=== PATIENT | female | born 1985 | race Caucasian/White ===

== ENCOUNTER 2019-03-28 12:52 | Emergency (ER) | payer SELFPAY ==
[~2019-03-28] VITALS: Ht 154.9 cm; Wt 75.9 kg
[2019-03-28] MEDS ORDERED: KETOROLAC TROMETHAMINE 60 MG/2 ML VIAL IM ONE (13:30)
[2019-03-28] MEDS ORDERED: FAMOTIDINE 20 MG TABLET PO ONE (13:30)
[2019-03-28 16:05] VITALS: BP 112/68
== END 2019-03-28 16:15 | disposition home or self-care (01) ==
LOC: EMS 12:57
DX: S29.012A Strain of muscle and tendon of back wall of thorax, initial encounter (principal); R07.89 Other chest pain; F12.90 Cannabis use, unspecified, uncomplicated; X58.XXXA Exposure to other specified factors, initial encounter; Y93.89 Activity, other specified; Y92.89 Other specified places as the place of occurrence of the external cause; Y99.8 Other external cause status
CPT/HCPCS: 36415; 71045; 84484; 93005; 96372; 99284; J1885